=== PATIENT | male | born 1955 | race Caucasian/White ===

== ENCOUNTER 2017-01-29 03:37 | Observation (INO) | payer OTHER, MEDICARE ==
[~2017-01-29] VITALS: Ht 182.9 cm; Wt 138.4 kg
[2017-01-29] VITALS (7 sets, daily range): BP systolic 115–148; BP diastolic 65–80; PULSE 66–93; RESP 16–18; TEMP 97.7–98.9; O2SAT 94–98
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
[2017-01-29] MEDS: LACTATED RINGER'S 1000 ML INJ 1,000 ML IV SCH ×2 (04:21→16:16)
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
[2017-01-29] MEDS ORDERED: SODIUM CHLORIDE 0.9% FLUSH 10 ML FLUSH IV FLUSH PRN (04:30)
[2017-01-29] MEDS ORDERED: CHLORHEXIDINE GLUCONATE 2 % 1 PACK (2 CLOTHS) TOP PRN (04:30)
[2017-01-29] MEDS ORDERED: ONDANSETRON HCL 4 MG/2 ML VIAL IV PRN (04:30)
[2017-01-29] MEDS ORDERED: MISCELLANEOUS NURSING INFORMATION XX SCH (04:30)
[2017-01-29] MEDS ORDERED: HYDROmorphone HCL PF 1 MG/ML VIAL IVP PRN (04:30)
[2017-01-29] MEDS ORDERED: LACTATED RINGER'S 1000 ML INJ 1,000 ML IV ONE (04:30)
[2017-01-29] MEDS ORDERED: ACETAMINOPHEN/HYDROcodone 325 MG/5 MG TAB PO PRN (04:30)
[2017-01-29] MEDS: ACETAMINOPHEN/HYDROcodone 325 MG/5 MG TAB PO PRN ×2 (06:36→20:24)
[2017-01-29] MEDS: DOCUSATE SODIUM 100 MG/10 ML UDC PO SCH ×2 (09:00→20:25)
[2017-01-29] MEDS: DOCUSATE SODIUM 50 MG/SENNA 8.6 MG TAB PO SCH ×2 (12:43→20:25)
[2017-01-29] MEDS: LIDOCAINE HCL 5% PATCH T-DERMAL SCH (12:47)
[2017-01-29] MEDS ORDERED: AMLO5TAB2 PO ×2 (12:59→13:03)
[2017-01-29] MEDS ORDERED: RAMI5CAP PO (13:01)
[2017-01-29] MEDS ORDERED: RAMI10CA PO (13:01)
[2017-01-29 13:50] LABS: BLOOD, URINE LARGE (NEG); COMMENT (UR) CATH-CULTURE IND; CULTURE IF INDICATED CATH CULTURE IND; GLUCOSE,URINE NEG (NEG); KETONE, URINE TRACE mg/dL (NEG); NITRITE,URINE NEG (NEG); URINE COLOR RED (YELLW/STRAW)
[2017-01-29 15:40] LABS: AUTOMATED NEUTROPHIL # 8.7 TH/MM3 (1.8-7.7); BASOPHIL % 0.4 % (0.0-2.0); EOSINOPHIL # 0.2 TH/MM3 (0-0.4); EOSINOPHIL % 1.5 % (0.0-4.0); HEMO FLAGS DIFF FINAL; LYMPHOCYTE # 1.5 TH/MM3 (1.0-4.8); MEAN CORPUSCULAR HEMOGLOBIN 27.8 PG (27.0-34.0); MEAN CORPUSCULAR HGB CONC 33.1 % (32.0-36.0); MONO % 9.2 % (0.0-8.0); NEUT % 75.9 % (16.0-70.0); PLATELET COUNT 202 TH/MM3 (150-450); RED BLOOD COUNT 4.88 MIL/MM3 (4.50-5.90); RED CELL DISTRIBUTION WIDTH 13.9 % (11.6-17.2); WHITE BLOOD COUNT 11.4 TH/MM3 (4.0-11.0)
[2017-01-29] MEDS ORDERED: diphenhydrAMINE HCL 50 MG CAP PO ONE (16:00)
[2017-01-29] MEDS: BACITRACIN TOP OINT 15 GM TUBE TOP SCH ×2 (16:14→20:27)
[2017-01-29] MEDS ORDERED: diphenhydrAMINE HCL 50 MG/ML VIAL IV ONE (16:15)
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
[2017-01-29] MEDS ORDERED: REMOVE OLD LIDOCAINE PATCH T-DERMAL SCH (21:00)
[2017-01-29] MEDS: HYDROmorphone HCL PF 1 MG/ML VIAL IVP PRN (22:06)
[2017-01-30] MEDS: HYDROmorphone HCL PF 1 MG/ML VIAL IVP PRN ×2 (02:15→04:49)
[2017-01-30] MEDS: ACETAMINOPHEN/HYDROcodone 325 MG/5 MG TAB PO PRN ×3 (03:22→14:35)
[2017-01-30] MEDS ORDERED: CHLORHEXIDINE GLUCONATE 2 % 1 PACK (2 CLOTHS) TOP SCH (04:00)
[2017-01-30] MEDS: LACTATED RINGER'S 1000 ML INJ 1,000 ML IV SCH (07:15)
[2017-01-30 07:32] LABS: AUTOMATED NEUTROPHIL # 12.7 TH/MM3 (1.8-7.7); BASOPHIL # 0.1 TH/MM3 (0-0.2); BASOPHIL % 0.4 % (0.0-2.0); EOSINOPHIL # 0.1 TH/MM3 (0-0.4); EOSINOPHIL % 0.5 % (0.0-4.0); HEMATOCRIT 40.5 % (39.0-51.0); HEMO FLAGS DIFF FINAL; LYMPH % 6.1 % (9.0-44.0); LYMPHOCYTE # 0.9 TH/MM3 (1.0-4.8); MEAN CELL VOLUME 83.9 FL (80.0-100.0); MEAN CORPUSCULAR HEMOGLOBIN 28.1 PG (27.0-34.0); MEAN CORPUSCULAR HGB CONC 33.5 % (32.0-36.0); MONO % 6.1 % (0.0-8.0); NEUT % 86.9 % (16.0-70.0); PLATELET COUNT 206 TH/MM3 (150-450); RED BLOOD COUNT 4.83 MIL/MM3 (4.50-5.90); RED CELL DISTRIBUTION WIDTH 13.8 % (11.6-17.2); WHITE BLOOD COUNT 14.6 TH/MM3 (4.0-11.0)
[2017-01-30 07:57] LABS: BICARBONATE 25.9 MEQ/L (21.0-32.0); POTASSIUM 3.9 MEQ/L (3.5-5.1)
[2017-01-30 08:00] VITALS: BP 124/73; PULSE 74; RESP 18; TEMP 97.5; O2SAT 93
[2017-01-30] MEDS: BACITRACIN TOP OINT 15 GM TUBE TOP SCH (09:00)
[2017-01-30] MEDS: DOCUSATE SODIUM 50 MG/SENNA 8.6 MG TAB PO SCH (09:40)
[2017-01-30] MEDS: LIDOCAINE HCL 5% PATCH T-DERMAL SCH (09:44)
[2017-01-30 12:00] VITALS: BP 135/67; PULSE 75; RESP 18; TEMP 98.2; O2SAT 93
[2017-01-30] MEDS ORDERED: METHOCARBAMOL 500 MG TAB PO SCH (12:00)
[2017-01-30] MEDS ORDERED: amLODIPine BESYLATE 5 MG TAB PO SCH (12:30)
[2017-01-30] MEDS ORDERED: HYDR-3516 PO (12:32)
[2017-01-30] MEDS ORDERED: METH500T3 PO (12:32)
[2017-01-30] MEDS ORDERED: SENN1TAB PO (12:32)
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
[2017-01-30] MEDS ORDERED: SULFAMETHOXAZOLE-TRIMETHOPRIM DS 800-160 MG TAB PO SCH (13:45)
[2017-01-30] MEDS ORDERED: CIPR250T2 PO (13:51)
[2017-01-30] MEDS ORDERED: CIPROFLOXACIN 250 MG TAB PO SCH (14:00)
[2017-01-30] MEDS ORDERED: RAMIPRIL 5 MG CAP PO SCH (21:00)
== END 2017-01-30 15:01 | disposition home or self-care (01) ==
LOC: NEPC 03:37 → NEDA 03:49 → INTOOBSV 03:49 → NEPGCP 06:22 → N06B 19:04
PROVIDERS: ADMIT Surgery Trauma Surgery; ATTEND Surgery Trauma Surgery
DX: R31.0 Gross hematuria (principal); S30.1XXA Contusion of abdominal wall, initial encounter; I10 Essential (primary) hypertension; V20.4XXA Motorcycle driver injured in collision with pedestrian or animal in traffic accident, initial encounter
CPT/HCPCS: 74430; 80048; 81001; 85025; 87086; 94150; 97162; 99285; G0378; J1170; J1200; J7120